=== PATIENT | male | born 1985 | race Hispanic/Latino ===

== ENCOUNTER 2021-07-08 15:22 | Emergency (ER) | payer SELFPAY ==
--- NOTE | 2021-07-08 17:07 | XRay Report ---
CHEST 2 VIEWS INDICATION / CLINICAL INFORMATION: cough, fever, tachycardia STUDY TIME: 1645 COMPARISON: None available. FINDINGS: SUPPORT DEVICES: None. HEART / MEDIASTINUM: No significant abnormality. LUNGS / PLEURA: Rounded densities in the lung bases are thought to be nipple shadows. Asymmetric incr eased interstitial markings are seen in the left lower lobe and lingula likely representing interstit ial pneumonitis. Right lung field is clear. No pleural effusions are seen. No pneumothorax. ADDITIONAL FINDINGS: No significant additional findings. Signer Name: Bay Haro MD Signed: 07/08/2021 5:03 PM Workstation Name: [id number]
[2021-07-08] MEDS ORDERED: SODIUM CHLORIDE 0.9% 1000 ML 1,000 ML IV ONE (17:59)
--- NOTE | 2021-07-08 18:04 | Emergency Department Report ---
ED General Adult HPI - General Chief complaint: Upper Respiratory Infection Stated complaint: COLD/COUGH Time Seen by Provider: 07/08/21 16:24 Source: patient Mode of arrival: Ambulatory Limitations: No Limitations - History of Present Illness Initial comments: 36-year-old male presents with complaints of cough x2 weeks. He denies any chest pain or shortness of breath. Patient states his cough is productive of yellow sputum. He denies any hemoptysis, loss of taste or smell, nausea/vomiting/diarrhea, abdominal pain, or fever/chills/sweats. No past me dical history per patient. He has not received the COVID-19 vaccine Severity scale (0 -10): 3 - Related Data Previous Rx's Medication Instructions Recorded Last Taken Type Azithromycin [Zithromax Z-FEDERICO] 250 mg PO DAILY #6 tablet 04/18/14 Unknown Rx Amoxicillin [Trimox CAP] 1,000 mg PO Q8H 10 Days #60 capsule 07/08/21 Unknown Rx Azithromycin [Zithromax Z-FEDERICO] 0 mg PO DAILY #6 tab 07/08/21 Unknown Rx Benzonatate 200 mg PO TID PRN #30 capsule 07/08/21 Unknown Rx Allergies Allergy/AdvReac Type Severity Reaction Status Date / Time No Known Allergies Allergy Verified 07/08/21 15:28 ED Review of Systems ROS: Stated complaint: COLD/COUGH Other details as noted in HPI Constitutional: denies: chills, diaphoresis, fever, malaise, weakness Respiratory: cough. denies: shortness of breath Cardiovascular: denies: chest pain Gastrointestinal: denies: abdominal pain Neurological: denies: headache ED Past Medical Hx - Social History Smoking Status: Current Every Day Smoker Substance Use Type: Alcohol - Medications Home Medications: Home Medications Medication Instructions Recorded Confirmed Last Taken Type Azithromycin [Zithromax Z-FEDERICO] 250 mg PO DAILY #6 tablet 04/18/14 Unknown Rx Amoxicillin [Trimox CAP] 1,000 mg PO Q8H 10 Days #60 capsule 07/08/21 Unknown Rx Azithromycin [Zithromax Z-FEDERICO] 0 mg PO DAILY #6 tab 07/08/21 Unknown Rx Benzonatate 200 mg PO TID PRN #30 capsule 07/08/21 Unknown Rx ED Physical Exam - General Limitations: No Limitations General appearance: alert, in no apparent distress - Head Head exam: Present: atraumatic, normocephalic - Eye Eye exam: Present: normal appearance. Absent: scleral icterus - Neck Neck exam: Present: normal inspection - Respiratory Respiratory exam: Present: normal lung sounds bilaterally, rhonchi. Absent: wheezes - Cardiovascular Cardiovascular Exam: Present: normal rhythm, tachycardia - Neurological Exam Neurological exam: Present: alert, oriented X3 - Psychiatric Psychiatric exam: Present: normal affect, normal mood - Skin Skin exam: Present: warm, dry, intact, normal color. Absent: rash ED Course Vital Signs 07/08/21 07/08/21 07/08/21 15:25 17:23 19:40 Temperature 99.9 F H 99.0 F 98.8 F Pulse Rate 123 H 118 H 106 H Respiratory 20 20 18 Rate Blood Pressure 127/70 112/59 104/57 [Right] O2 Sat by Pulse 95 94 98 Oximetry 07/08/21 19:50 Temperature Pulse Rate 94 H Respiratory Rate Blood Pressure [Right] O2 Sat by Pulse Oximetry ED Medical Decision Making - Lab Data Result diagrams: 07/08/21 18:20 07/08/21 18:20 - Radiology Data Radiology results: report reviewed INDICATION / CLINICAL INFORMATION: cough, fever, tachycardia STUDY TIME: 1645 COMPARISON: None available. FINDINGS: SUPPORT DEVICES: None. HEART / MEDIASTINUM: No significant abnormality. LUNGS / PLEURA: Rounded densities in the lung bases are thought to be nipple shadows. Asymmetric increased interstitial markings are seen in the left lower lobe and lingula likely representing interstitial pneumonitis. Right lung field is clear. No pleural effusions are seen. No pneumothorax. ADDITIONAL FINDINGS: No significant additional findings. - Medical Decision Making 36-year-old male presents with complaints of cough x2 weeks. He denies any chest pain or shortness of breath. Patient states his cough is productive of yellow sputum. He denies any hemoptysis, loss of taste or smell, nausea/vomiting/diarrhea, abdominal pain, or fever/chills/sweats. No past medical history per patient. He has not received the COVID-19 vaccine X-ray shows left lobe pneumonia. Patient noted to be tacky at 118. 1 L normal saline given. Repeat vitals are within normal limits. Patient was ambulated by this provider and remained 96% to 100% on room air with ambulation. He continues to deny shortness of breath. He is well-appearing and stable for discharge home. We will treat with azithromycin and Amoxil. Recommend patient follows up with primary care in 3 to 5 days and also receive outpatient COVID-19 testing within the next 24 to 48 hours. Self quarantine discussed. Strict return precautions were discussed in detail with patient who verbalizes understanding. Critical care attestation.: If time is entered above; I have spent that time in minutes in the direct care of this critically ill patient, excluding procedure time. ED Disposition Clinical Impression: Left lower lobe pneumonia Disposition: HOME / SELF CARE / HOMELESS Is pt being admited?: No Condition: Stable Instructions: Community-Acquired Pneumonia, Adult, Bacterial Pneumonia (ED) Prescriptions: Benzonatate 200 mg PO TID PRN #30 capsule PRN Reason: Cough Amoxicillin [Trimox CAP] 1,000 mg PO Q8H 10 Days #60 capsule Azithromycin [Zithromax Z-FEDERICO] 0 mg PO DAILY #6 tab Referrals: [facility] [Provider Group] - 3-5 Days Forms: Work/School Release Form(ED)
[2021-07-08 18:46] LABS: Basophils # (Auto) 0.1 K/mm3 (0.0-0.1); Basophils % (Auto) 0.5 % (0.0-1.8); Eosinophils # (Auto) 0.1 K/mm3 (0.0-0.4); Eosinophils % (Auto) 0.4 % (0.0-4.3); Hematocrit 40.1 % (35.5-45.6); Hemoglobin 13.2 gm/dl (11.8-15.2); Lymphocytes # (Auto) 2.7 K/mm3 (1.2-5.4); Lymphocytes % (Auto) 16.2 % (13.4-35.0); Mean Corpuscular HGB Conc 33 % (32-34); Mean Corpuscular Volume 86 fl (84-94); Monocytes # (Auto) 1.2 K/mm3 (0.0-0.8); Monocytes % (Auto) 6.9 % (0.0-7.3); Platelet Count 588 K/mm3 (140-440); Red Blood Count 4.69 M/mm3 (3.65-5.03); Red Cell Distribution Width 16.6 % (13.2-15.2)
[2021-07-08 18:53] LABS: BUN/Creatinine Ratio 8; Blood Urea Nitrogen 7 mg/dL (9-20); Calcium 8.4 mg/dL (8.4-10.2); Hemolysis Index 11
[2021-07-08 19:43] VITALS: BP 104/57
== END 2021-07-08 19:50 | disposition home or self-care (01) ==
LOC: ED 15:22
DX: J18.1 Lobar pneumonia, unspecified organism (principal); F17.200 Nicotine dependence, unspecified, uncomplicated; F10.20 Alcohol dependence, uncomplicated
CPT/HCPCS: 36415; 71046; 80048; 85025; 96365; 99284; J7030